=== PATIENT | female | born 1970 | race Hispanic/Latino ===

== ENCOUNTER 2016-09-04 15:13 | Emergency (ER) | payer OTHER ==
[~2016-09-04] VITALS: Ht 160 cm; Wt 95.0 kg
[~2016-09-04 15:13] MED LIST: MORPHINE SUL30 M3 PO; ROXICODONE15 MG PO
[2016-09-04 16:38] VITALS: BP 128/68
[2016-09-04] MEDS ORDERED: PROAIR HFA108 MCG/AC (16:48)
[2016-09-04] MEDS ORDERED: CLONAZEPAM1 MG PO (16:49)
[2016-09-04] MEDS ORDERED: TOPIRAMATE25 MG PO (16:51)
[2016-09-04] MEDS ORDERED: NEURONTIN300 MG PO (16:52)
[2016-09-04] MEDS ORDERED: LOVASTATIN20 M1 PO (16:52)
[2016-09-04] MEDS ORDERED: HYDROCHLOROT25 MG PO (16:53)
[2016-09-04] MEDS ORDERED: PROZAC10 MG PO (16:53)
== END 2016-09-04 16:40 | disposition home or self-care (01) | DRG 556 ==
LOC: ED 15:13
DX: M79.604 Pain in right leg (principal)

== ENCOUNTER 2018-02-08 22:44 | Emergency (ER) | payer OTHER ==
[~2018-02-08] VITALS: Ht 160 cm; Wt 65.0 kg
[~2018-02-08 22:44] MED LIST changes: +AMBIEN10 MG PO; +CLONAZEPAM1 MG PO; +FENTANYL50 MCG/HR TD; +HYDROCHLOROT25 MG PO; +LOVASTATIN20 M1 PO; +MIRTAZAPINE30 MG PO; +MORPHINE SUL60 MG PO; +NEURONTIN300 MG PO; +OXYCODONE15 MG PO; +OXYCONTIN30 M1 PO; +PROAIR HFA108 MCG/AC; +PROZAC10 MG PO; +TOPIRAMATE25 MG PO
[2018-02-08 22:45] VITALS: BP 165/89
== END 2018-02-09 00:05 | disposition left against medical advice (07) ==
LOC: ED 22:44
DX: R52 Pain, unspecified (principal); Z91.19 Patient's noncompliance with other medical treatment and regimen; M54.6 Pain in thoracic spine; R07.89 Other chest pain